=== PATIENT | female | born 1985 | race Caucasian/White ===

== ENCOUNTER 2017-02-19 16:11 | Emergency (ER) | payer OTHER ==
[~2017-02-19] VITALS: Ht 167.6 cm; Wt 77.1 kg
[2017-02-19] MEDS ORDERED: TUMS PO (16:17)
[2017-02-19] MEDS ORDERED: VITAMIN D1000 UNI1 PO (16:17)
[2017-02-19] MEDS ORDERED: WELLBUTRIN XL300 MG PO (16:17)
[2017-02-19 16:49] LABS: ABSOLUTE EOSINOPHILS 0.1 thou/uL (0.0-0.7); ABSOLUTE LYMPHOCYTES 1.2 thou/uL (0.8-5.3); ABSOLUTE MONOCYTES 0.5 thou/uL (0.0-1.2); ABSOLUTE NEUTROPHILS 2.5 thou/uL (1.6-8.1); BASOPHILS 1.1 %; EOSINOPHILS 2.8 %; HEMATOCRIT 38.8 % (37.0-47.0); HEMOGLOBIN 13.2 gm/dL (12.0-15.0); LYMPHOCYTES 27.6 %; MCH 29.8 pg (26.0-34.0); MCV 87.6 fL (80.0-100.0); MONOCYTES 12.1 %; MPV 7.8 fl. (7.2-11.1); NUCLEATED RBCS 0 /100WBC; PLATELET COUNT* 308 thou/uL (150-400); POLYS 56.4 %; RBC 4.43 mil/uL (4.20-5.00); RDW-CV 12.6 % (10.5-14.5); WBC 4.4 thou/uL (4.0-11.0)
[2017-02-19 16:57] LABS: ANION GAP 3 mmol/L (7-16); BUN 12 mg/dL (7-18); CALCIUM 8.6 mg/dL (8.5-10.1); CHLORIDE 104 mmol/L (98-107); CO2 32 mmol/L (21-32); CREATININE 0.7 mg/dL (0.6-1.3); GLUCOSE 89 mg/dL (70-99); POTASSIUM 4.1 mmol/L (3.5-5.1); SODIUM 139 mmol/L (136-145)
[2017-02-19 17:04] LABS: ALBUMIN 3.9 g/dL (3.4-5.0); ALKALINE PHOSPHATASE 61 U/L (46-116); SGOT 43 U/L (15-37); SGPT 51 U/L (30-65); TOTAL BILIRUBIN 0.3 mg/dL (<0.1-1.0); TOTAL PROTEIN 7.7 g/dL (6.4-8.2); TROPONIN-I LEVEL <0.06 ng/mL (<0.06)
[2017-02-19 17:15] LABS: URINE BILIRUBIN NEGATIVE (Negative); URINE BLOOD NEGATIVE (Negative); URINE CLARITY CLEAR; URINE COLOR YELLOW; URINE GLUCOSE-RANDOM NEGATIVE (Negative); URINE KETONES NEGATIVE (Negative); URINE LEUKOCYTES-REFLEX NEGATIVE (Negative); URINE NITRITE-REFLEX NEGATIVE (Negative); URINE PROTEIN NEGATIVE (Negative); URINE UROBILINOGEN 0.2 E.U./dl (0.2-1.0)
[2017-02-19] MEDS ORDERED: OMEPRAZOLE 20 M20 M1 PO (18:39)
[2017-02-19 18:46] VITALS: BP 127/82
--- NOTE | 2017-02-20 13:10 | EKG ---
[place] [address] ELECTROCARDIOGRAM REPORT Name: PAUL SHELL Room: [facility]#: [id number] Admission: 02/19/17 Attend Phys: Discharge: 02/19/17 Date of : 83 Report #: [id number] THIS REPORT FOR: //name// [facility] ED Test Date: 2017-02-19 Test Time: 16:16:05 Pat Name: PAUL SHELL Department: Room: Gender: F Technical Planner: BREANNA : 1985 Requested By: Felicita Espinoza Order Number: [id number] MD: Jun Kelly Measurements Intervals [place] Rate: 62 P: 57 MD: 127 QRS: 26 QRSD: 83 T: 53 QT: 375 QTc: 381 Interpretive Statements Sinus rhythm No previous ECG available for comparison Electronically Signed On 02-20-2017 13:10:11 [employer] by Jun Kelly [email or web address] <ELECTRONICALLY SIGNED> By: Jun Kelly MD, [facility] 02/20/17 1310 1616 1616 Jun Kelly MD, FACC /EPI
== END 2017-02-19 18:46 | disposition home or self-care (01) ==
LOC: M.ERS 16:11
PROVIDERS: Nurse Practitioner Family
DX: M54.9 Dorsalgia, unspecified (principal); R10.13 Epigastric pain; Z90.49 Acquired absence of other specified parts of digestive tract; Z98.890 Other specified postprocedural states